=== PATIENT | male | born 1940 | race Caucasian/White ===

== ENCOUNTER 2023-04-24 13:30 | Emergency (ER) | payer MEDICARE ==
[~2023-04-24] VITALS: Ht 167.6 cm; Wt 68.0 kg
[2023-04-24 13:33] VITALS: TEMP 98.5; O2SAT 100
[2023-04-24 14:36] LABS: BASOPHILS % 0.7 % (0.0-2.0); EOSINOPHILS % 1.5 % (0.0-5.0); HEMATOCRIT. 37.7 % (42.0-52.0); HEMOGLOBIN. 12.6 g/dL (14.0-18.0); MEAN CORPUSCULAR HEMOGLOBIN 29.8 pg (28.0-32.0); MEAN CORPUSCULAR HGB CONC 33.5 g/dL (31.0-37.0); MEAN CORPUSCULAR VOLUME 89.1 fL (80.0-94.0); MEAN PLATELET VOLUME 7.3 fl (7.4-10.4); MONOCYTES % 5.5 % (2.0-8.0); NEUTROPHILS % 71.3 % (40.0-76.0); PLATELET 223 x1000/uL (130-400); RED BLOOD CELL COUNT 4.24 mill/uL (4.7-6.1); RED CELL DISTRIBUTION WIDTH 13.9 % (11.6-14.6); WHITE BLOOD COUNT 4.6 x1000/uL (4.5-11.0)
[2023-04-24 14:41] LABS: CHLORIDE 108 mEq/L (98-107); INDEX HEMOLYSI 1 (1-3); INDEX ICTERIC 1 (1-4); INDEX LIPEMIC 1 (1-3); POTASSIUM 4.2 mEq/L (3.5-5.1); SODIUM 137 mEq/L (136-145)
[2023-04-24 14:49] LABS: ALANINE AMINOTRANSFERASE 29 IU/L (13-61); ALBUMIN 3.5 g/dL (3.4-5.0); ASPARTATE AMINOTRANSFERASE 20 IU/L (15-37); BILIRUBIN TOTAL 0.2 mg/dL (0.1-1.0); CALCIUM 9.5 mg/dL (8.5-10.1); CARBON DIOXIDE 22 mEq/L (21-32); CREATININE 1.1 mg/dL (0.6-1.3); PROTEIN TOTAL 6.5 g/dL (6.0-8.3); UREA NITROGEN BLOOD 16 mg/dL (7-21)
[2023-04-24 14:57] LABS: PROTHROMBIN TIME 10.3 sec (9.6-11.0)
[2023-04-24 15:35] LABS: GLUCOSE 113 mg/dL (70-105)
[2023-04-24 17:07] LABS: CLARITY URINE CLEAR (CLEAR); COLOR URINE YELLOW (YELLOW); GLUCOSE URINE NEGATIVE (NEGATIVE); KETONES URINE NEGATIVE (NEGATIVE); LEUKOCYTE ESTERASE URINE 2+ (NEGATIVE); NITRITE URINE NEGATIVE (NEGATIVE); OCCULT BLOOD URINE NEGATIVE (NEGATIVE); PH URINE 5.5 (4.5-8.0); PROTEIN URINE NEGATIVE (NEGATIVE); SPECIFIC GRAVITY URINE 1.005 (1.005-1.030); UROBILINOGEN URINE 0.2 E.U./dL (0.2-1.0)
[2023-04-24 17:31] LABS: BACTERIA URINE TRACE; SQUAMOUS EPITHELIAL CELL URINE RARE /lpf (RARE/1+)
[2023-04-24 17:32] LABS: RBC URINE 0-2 /hpf (0-2)
[2023-04-24] MEDS ORDERED: CEPH500C2 MT (18:28)
[2023-04-24 19:00] VITALS: BP 145/71; PULSE 64; RESP 16
[2023-04-24] MEDS ORDERED: CLONIDINE 0.1MG TABLET PO PRN (19:15)
[2023-04-24] MEDS ORDERED: ACETAMINOPHEN 325MG TABLET PO PRN ×2 (19:15)
[2023-04-24] MEDS ORDERED: ONDANSETRON HCL 4MG/2ML INJ IV PRN (19:15)
[2023-04-24] MEDS ORDERED: DOCUSATE SODIUM 100MG CAPSULE PO PRN (19:15)
[2023-04-24] MEDS ORDERED: IPRATROPIUM/ALBUTEROL 0.5-3(2.5)MG/3ML NEB HHN PRN (19:15)
[2023-04-24 19:19] LABS: INDEX HEMOLYSI 1 (1-3)
[2023-04-24 19:22] LABS: PHOSPHORUS 2.8 mg/dL (2.5-4.9); T4 FREE 0.82 ng/dL (0.76-1.46); THYROID STIMULATING HORMONE 1.8 uIU/mL (0.36-3.74)
[2023-04-24 19:45] LABS: FERRITIN 21 ng/mL (22-322)
[2023-04-24 19:49] LABS: VITAMIN B12 SERUM 743 pg/mL (211-911)
[2023-04-24 19:50] LABS: FOLIC ACID (FOLATE) SERUM > 20.00 ng/mL (>5.38)
[2023-04-25] MEDS ORDERED: ENOXAPARIN 40MG/0.4ML SYR SUBCUT SCH (09:00)
[2023-04-25 13:42] LABS: *AMPHETAMINES SCREEN URINE NEGATIVE (NEGATIVE); *BARBITURATES SCREEN URINE NEGATIVE (NEGATIVE); *BENZODIAZEPINES SCREEN URINE PRESUMTIVE POSITIVE (NEGATIVE); *COCAINE SCREEN URINE NEGATIVE (NEGATIVE); CANNABINOID URINE SCREEN NEGATIVE (NEGATIVE); ECSTASY MDMA SCREEN URINE NEGATIVE (NEGATIVE); METHADONE URINE SCREEN NEGATIVE (NEGATIVE); OPIATES URINE SCREEN NEGATIVE (NEGATIVE); PHENCYCLIDINE URINE SCREEN NEGATIVE (NEGATIVE)
== END 2023-04-24 19:05 | disposition home or self-care (01) ==
LOC: ER 13:49 → CANBEDREQ 22:09
DX: R53.1 Weakness (principal); R51.9 Headache, unspecified; Z98.890 Other specified postprocedural states
CPT/HCPCS: 36415; 70551; 71045; 80053; 80305; 81003; 82607; 82728; 82746; 83540; 83550; 83735; 84100; 84439; 84443; 85025; 99285